=== PATIENT | female | born 1955 | race Caucasian/White ===

== ENCOUNTER → 2017-10-29 | Outpatient (CLI) | payer OTHER | LOC: MAMMO 14:54 | PROVIDERS: ATTEND Internal Medicine | DX: Z12.31 Encounter for screening mammogram for malignant neoplasm of breast (principal) | CPT/HCPCS: G0202 ==

== ENCOUNTER → 2018-11-18 | Outpatient (CLI) | payer OTHER | LOC: MAMMO 12:45 | PROVIDERS: ATTEND Internal Medicine | DX: Z12.31 Encounter for screening mammogram for malignant neoplasm of breast (principal) | CPT/HCPCS: 77067 ==

== ENCOUNTER → 2019-09-15 | Outpatient (CLI) | payer OTHER | LOC: MAMMO 12:13 | PROVIDERS: ATTEND Family Medicine | DX: Z12.31 Encounter for screening mammogram for malignant neoplasm of breast (principal) ==

== ENCOUNTER → 2019-11-22 | Outpatient (CLI) | payer OTHER ==
--- NOTE | 2019-11-27 09:09 | Diagnostic Imaging Report ---
#[id number] - [id number] #BILATERAL DIGITAL SCREENING MAMMOGRAM WITH CAD: 11/22/2019 CLINICAL: Routine screening. Comparison is made to exams dated: 11/18/2018 mammogram and 10/29/2017 mammogram - [facility]. Current study contains 4 films. The tissue of both breasts is predominantly fatty. Current study was also evaluated with a Computer Aided Detection (CAD) system. Benign appearing calcifications are noted bilaterally. No significant masses, calcifications, or other findings are seen in either breast. IMPRESSION: BENIGN There is no mammographic evidence of malignancy. A 1 year screening mammogram is recommended. The patient will be notified by letter of the results. MAX SEGAL M.D. ct/penrad:11/24/2019 17:00:28 Card Tender: Abigail LEE(R)(M), [facility] letter sent: Normal Exam Mammogram BI-RADS: 2 Benign
== END ==
LOC: MAMMO 15:34
PROVIDERS: ATTEND Family Medicine
DX: Z12.31 Encounter for screening mammogram for malignant neoplasm of breast (principal)
CPT/HCPCS: 77067

== ENCOUNTER 2020-08-03 19:50 | Emergency (ER) | payer OTHER ==
[~2020-08-03] VITALS: Ht 157.5 cm; Wt 66.7 kg
--- NOTE | 2020-08-03 19:55 | NUR ---
DR. SEYMOUR AT PT'S BEDSIDE TO DISCUSS RISKS OF DECLINING TRANSFER. PT VERBALIZED UNDERSTANDING OF RISKS.
--- NOTE | 2020-08-03 20:07 | NUR ---
SPOKE WITH TOY WITH [facility] AND NOTIFIED TOY TO CANCEL TRANSFER.
[2020-08-03] MEDS ORDERED: ONDANSETRON HCL INJ 2MG/ML 2ML 2 MG/ML VIAL IV STA (20:18)
--- NOTE | 2020-08-03 20:27 | Emergency Department Note ---
History of Present Illnes History of Present Illness Chief Complaint: Extremity Trauma/Pain History of Present Illness This is a 65 year old female arrived to the ED after sustaining a mechanical fall. Patient states she was running on a treadmill and fell on outstretched left hand . Chief Complaint Comment Patient trip & fell on her thread mill landed on her left hand trying to catch herself. No reports of LOC. Historian: Patient, Family Member Arrival Mode: Car Radiation: Reports non-radiation Severity: mild Onset quality: sudden Duration (how long): hour(s) Timing of current episode: constant Progression: worsening Chronicity: new Context: Reports trauma/injury Exacerbating factors: movement Associated symptoms: Reports denies other symptoms Past Medical/Family History Physician Review I have reviewed the patient's past medical and family history. Any updates have been documented here. Past Medical History Recent Fever: No Clinical Suspicion of Infectio: No New/Unexplained Change in Ment: No Past Medical History: Hypertension Other Medical History: +Covid 19 last 04/2020 Other Surgery: Carpal tunnel Sx Back Surgery Social History Smoking Cessation: Never Smoker Counseling Performed: No Alcohol Use: None Any Illegal Drug Use: No Physically hurt or threatened: No Other Any Pre-Existing Lines (PICC,: No Review of Systems Review of Systems Constitutional: Reports no symptoms EENTM: Reports no symptoms Cardiovascular: Reports no symptoms Respiratory: Reports no symptoms Gastrointestinal: Reports no symptoms Genitourinary: Reports no symptoms Musculoskeletal: Reports as per HPI, Reports joint pain, Reports joint swelling Integumentary: Reports no symptoms Neurological: Reports no symptoms Psychological: Reports no symptoms Endocrine: Reports no symptoms Hematological/Lymphatic: Reports no symptoms Physical Exam Related Data Allergies: Coded Allergies: Sulfa (Sulfonamide Antibiotics) (Verified Allergy, Unknown, 08/03/20) Uncoded Allergies: IV Contrast (Adverse Reaction, Unknown, 08/03/20) Triage Vital Signs Vital Signs Date Time Temp Pulse Resp B/P (MAP) Pulse Ox O2 Delivery O2 Flow Rate FiO2 08/03/20 19:58 98.2 87 16 125/73 98 Room Air Vital signs reviewed: Yes Physical Exam CONSTITUTIONAL Constitutional: Present well-developed, Present well-nourished HENT HENT: Present normocephalic, Present atraumatic, Present oropharynx clear/moist, Present nose normal HENT L/R: Present left ext ear normal, Present right ext ear normal EYES Eyes: Reports PERRL, Reports conjunctivae normal NECK Neck: Present ROM normal PULMONARY Pulmonary: Present effort normal, Present breath sounds normal CARDIOVASCULAR Cardiovascular: Present regular rhythm, Present heart sounds normal, Present capillary refill normal, Present normal rate GASTROINTESTINAL Abdominal: Present soft, Present nontender, Present bowel sounds normal GENITOURINARY Genitourinary: Present exam deferred SKIN Skin: Present warm, Present dry MUSCULOSKELETAL Musculoskeletal: Present deformity, Present tenderness, Present swelling, Present other (left wrist swelling and deformity noted, radial pulses present) NEUROLOGICAL Neurological: Present alert, Present oriented x 3, Present no gross motor or sensory deficits PSYCHOLOGICAL Psychological: Present mood/affect normal, Present judgement normal Results Imaging Imaging results reviewed: Yes Impressions IMPRESSION: Acute dorsally angulated and displaced distal radial intra-articular fracture. Postreduction x-ray: IMPRESSION: Improved, near-anatomic alignment of the intra-articular distal radial fracture. Procedures Orthopedic Joint Reduction Joint: Joint #1 Time out performed: Yes Side: left Joint reduction location: wrist Analgesia: procedural sedation Shoulder technique used (if ap: traction/counter-traction Post-reduction neuor exam: intact Post-reduction vascular exam: intact Post-reduction xrays obtained: Yes Xray results: reduced Splint applied: Yes Patient tolerated procedure: well Orthopedic Splinting/Casting Injury: Injury #1 Side: left Upper exremity injury location: wrist Upper extremity immobilizer: sugar tong splint Procedural Sedation Indication: fracture/dislocation reduction ASA class: IV Preparation: assistant bookkeeper applied, pulse oximeter, capnometry used, suction/airway equip at bedside, IV secured Ketamine: IV Ketamine dose (mg): 60 Additional comments INDICATION: Distal radius fracture. Informed consent obtained. The patient is AAOx3 before procedural sedation. No prior problems with anesthesia or sedation. Procedural sedation performed using 60 mg ketamine and propofol. Adequate anesthesia and analgesia achieved. Patient on a assistant bookkeeper and nasal cannula during the procedure, and had no signs of respiratory distress. Pt monitored until AAOx3 again. Pt tolerated sedation with no complications. Assessment & Plan Medical Decision Making MDM 65 old female arrived to the ED after sustaining a FOOSH injury to her left wrist. Procedural sedation done with propofol and ketamine, patient tolerated well. Extremity was splinted, normal cap refill prior to and after the reduction and splint placement. Outpatient ORTHO Referral given. Assessment & Plan Final Impression: (1) Distal radius fracture, left Depart Disposition: HOME, SELF-CARE Last Vital Signs Date Time Temp Pulse Resp B/P (MAP) Pulse Ox O2 Delivery O2 Flow Rate FiO2 08/03/20 19:58 98.2 87 16 125/73 98 Room Air Home Meds Active Scripts Tramadol Hcl (ULTRAM) 50 Mg Tablet, 50 MG PO Q6HR PRN for Mild Pain (1-3) or Fever>100.8, #14 TAB Prov:KAPIL SEYMOUR DO 08/04/20 Medications in the ED Morphine Sulfate 4 mg ONCE ONCE IV ; Start 08/03/20 at 20:30; Stop 08/03/20 at 20:31 Ondansetron HCl 4 mg NOW STAT IV ; Start 08/03/20 at 20:18; Stop 08/03/20 at 20:22; Status DC KAPIL SEYMOUR DO Aug 03, 2020 20:26
[2020-08-03] MEDS ORDERED: MORPHINE SULFATE INJ 4 MG/ML INJ 1ML IV ONE (20:30)
--- NOTE | 2020-08-03 22:06 | Diagnostic Imaging Report ---
X-ray left elbow 3 views HISTORY: Pain. COMPARISON: None available. FINDINGS: Bones: No acute displaced fracture. Osseous alignment is within normal limits. Joints: The joint spaces are well-maintained. Soft tissues: The soft tissues appear unremarkable. IMPRESSION: No acute radiographic abnormality. Signed by: David Atwood DO on 08/03/2020 10:03 PM
--- NOTE | 2020-08-03 22:06 | Diagnostic Imaging Report ---
X-ray left wrist 3 views HISTORY: Pain. COMPARISON: None available. FINDINGS: Bones: Acute dorsally angulated and displaced distal radial intra-articular fracture. Joints: The joint spaces are well-maintained. Soft tissues: Soft tissue swelling about the wrist. IMPRESSION: Acute dorsally angulated and displaced distal radial intra-articular fracture. Signed by: David Atwood DO on 08/03/2020 10:02 PM
[2020-08-03] MEDS: KETAMINE HCL INJ 50 MG/ML 10 ML VIAL IV ONE (23:15)
[2020-08-03] MEDS: PROPOFOL IV EMULSION 10 MG/ML 20 ML VIAL IV ONE (23:15)
--- NOTE | 2020-08-03 23:50 | NUR ---
2315 - conscious sedation meds given IV by Dr Narayan at bedside. Pt AAOX4, VSS. HR-70 BP-175/94 RR-20 2320- Reduction done. reverse suga tong was placed. Cap refill <3 sec, finger pink & warm to touch. 2330- Pt was fully awake & conversing with RN & son at bedside. No c/o pain or respiratory distress at this time. HR-75 BP-163/92 RR-14 2336-Radiology at bedside for repeat X-ray. Pt fully conscious & breathing independently at this time.
--- NOTE | 2020-08-03 23:55 | NUR ---
Armsling was place prior to X-ray procedure. Pt tolerated it well.
--- NOTE | 2020-08-04 00:09 | Diagnostic Imaging Report ---
X-ray left wrist 3 views HISTORY: Pain. COMPARISON: Same day left wrist radiographs FINDINGS: Overlying cast/splint limits bony detail Bones: Improved, near-anatomic alignment of the intra-articular distal radial fracture. Osseous alignment is within normal limits. Joints: The joint spaces are well-maintained. Soft tissues: The soft tissues appear unremarkable. IMPRESSION: Improved, near-anatomic alignment of the intra-articular distal radial fracture. Signed by: David Atwood DO on 08/04/2020 12:06 AM
[2020-08-04] MEDS ORDERED: ULTRAM50 MG PO (00:15)
[2020-08-04 00:46] VITALS: BP 138/69
== END 2020-08-04 00:47 | disposition home or self-care (01) ==
LOC: ER 20:10
DX: S52.502A Unspecified fracture of the lower end of left radius, initial encounter for closed fracture (principal); Y93.A1 Activity, exercise machines primarily for cardiorespiratory conditioning; Y92.008 Other place in unspecified non-institutional (private) residence as the place of occurrence of the external cause; I10 Essential (primary) hypertension
CPT/HCPCS: 29125; 73080; 73110; 99284; J2270; J2405; J2704

== ENCOUNTER → 2020-12-20 | Outpatient (CLI) | payer OTHER ==
[~2020-12-20] MED LIST: ULTRAM50 MG PO
== END ==
LOC: MAMMO 12:51
PROVIDERS: ATTEND Family Medicine
DX: Z12.31 Encounter for screening mammogram for malignant neoplasm of breast (principal)
CPT/HCPCS: 77067

== ENCOUNTER → 2021-02-07 | Outpatient (CLI) | payer OTHER | LOC: RAD 09:34 | PROVIDERS: ATTEND Family Medicine | DX: M25.521 Pain in right elbow (principal); M25.512 Pain in left shoulder ==

== ENCOUNTER → 2022-01-02 | Outpatient (CLI) | payer OTHER, MEDICARE | LOC: MAMMO 12:06 | PROVIDERS: ATTEND Family Medicine | DX: Z12.31 Encounter for screening mammogram for malignant neoplasm of breast (principal); R10.2 Pelvic and perineal pain; R39.11 Hesitancy of micturition | CPT/HCPCS: 76857; 77067 ==

== ENCOUNTER → 2023-01-22 | Outpatient (CLI) | payer OTHER | LOC: MAMMO 12:38 | PROVIDERS: ATTEND Family Medicine | DX: Z12.31 Encounter for screening mammogram for malignant neoplasm of breast (principal) | CPT/HCPCS: 77067 ==

== ENCOUNTER → 2023-03-26 | Outpatient (CLI) | payer OTHER | LOC: DX 12:46 | PROVIDERS: ATTEND Family Medicine | DX: M85.88 Other specified disorders of bone density and structure, other site (principal) | CPT/HCPCS: 77080 ==

== ENCOUNTER → 2025-03-30 | Outpatient (REF) | payer OTHER | LOC: MAMMO 11:08 | PROVIDERS: ATTEND Family Medicine | DX: Z12.31 Encounter for screening mammogram for malignant neoplasm of breast (principal) | CPT/HCPCS: 77067 ==